=== PATIENT | female | born 1965 | race African-American/Black ===

== ENCOUNTER 2019-02-22 14:16 | Emergency (ER) | payer OTHER ==
[2019-02-22 14:26] VITALS: BP 129/69; PULSE 86; TEMP 98; BMI 31.2
--- NOTE | 2019-02-22 14:26 | PDOC ---
Rapid Medical Evaluation Chief Complaint: Pain, Acute Time Seen by Provider: 02/22/19 14:24 Medical Evaluation: Allergies Allergy/AdvReac Type Severity Reaction Status Date / Time No Known Allergies Allergy Verified 05/05/15 21:04 02/22/19 14:24 I have performed a brief in-person evaluation of this patient. The patient presents with a chief complaint of:pain to right foot/ heel x 4 weeks/ worsen today - Atraumatic Pertinent physical exam findings: walks with limp I have ordered the following: nothing The patient will proceed to the ED for further evaluation. Discharge Disposition - Diagnosis Foot pain, right - Referrals - Patient Instructions - Post Discharge Activity
--- NOTE | 2019-02-22 15:04 | PDOC ---
History of Present Illness - General Chief Complaint: Pain, Acute Stated Complaint: RT KNEE PAIN Time Seen by Provider: 02/22/19 14:24 History Source: Patient - History of Present Illness Initial Comments: 02/22/19 15:11 53 year old female c/o right knee pain patient reports that she twisted her knee while screwing a light bulb . denies fall trauma to the knee. pain is worse with movement. Past History - Past Medical History Allergies/Adverse Reactions: Allergies Allergy/AdvReac Type Severity Reaction Status Date / Time No Known Allergies Allergy Verified 02/22/19 14:26 Home Medications: Ambulatory Orders Omeprazole 20 mg PO DAILY 05/05/15 Ranitidine HCl [Zantac] 150 mg PO DAILY 05/05/15 Simvastatin 40 mg PO DAILY 05/05/15 Naproxen 500 mg PO BID PRN #14 tablet 02/22/19 COPD: No HTN: Yes Hypercholesterolemia: Yes - Immunization History Immunization Up to Date: Yes - Psycho Social/Smoking Cessation Hx Smoking History: Never smoked Have you smoked in the past 12 months: No Hx Alcohol Use: No Drug/Substance Use Hx: No Review of Systems - Review of Systems Able to Perform ROS?: Yes Is the patient limited [place] proficient: No Musculoskeletal: Yes: Other (knee pain) *Physical Exam - Vital Signs Last Vital Signs Temp Pulse Resp BP Pulse Ox 98 F 86 18 129/69 98 02/22/19 14:23 02/22/19 14:23 02/22/19 14:23 02/22/19 14:23 02/22/19 14:23 - Physical Exam General Appearance: Yes: Appropriately Dressed Respiratory/Chest: positive: Lungs Clear, Normal Breath Sounds Extremity: positive: Other (able to leg raise and kick out. pain is worse with movement. ) Integumentary: positive: Normal Color, Dry, Warm Neurologic: positive: Fully Oriented, Alert, Normal Mood/Affect ED Progress Note - Progress Note Progress Note: 02/22/19 16:09 A: right knee pain P: knee immobilizer RICE ortho follow up Discharge - Discharge Information Problems reviewed: Yes Clinical Impression/Diagnosis: Right anterior knee pain Disposition: HOME - Additional Discharge Information Prescriptions: Naproxen 500 mg PO BID PRN #14 tablet PRN Reason: Pain - Follow up/Referral Referrals: Lan Jones [Primary Care Provider] - Yogi Kessler MD [Staff Physician] - - Patient Discharge Instructions Patient Printed Discharge Instructions: DI for Knee Pain Additional Instructions: use a knee immobilizer Apply ice to the area for the first 24 hours. Then alternate with ice and heat after. Take every 6 hours as needed for pain. Follow-up with an orthopedic doctor if symptoms persist. A referral was given to you today. Return to the emergency room for any worsening symptoms. - Post Discharge Activity Work/Back to School Note: Back to Work
[2019-02-22] MEDS ORDERED: IBUPROFEN 600 MG TABLET (FP) PO ONE ×2 (15:07→15:33)
== END 2019-02-22 16:28 | disposition home or self-care (01) ==
LOC: JERFT 14:16
PROC: 2W3QXYZ Immobilization of Right Lower Leg using Other Device (ICD-10-PCS; principal; 2019-02-22)
DX: M25.561 Pain in right knee (principal); X50.1XXA Overexertion from prolonged static or awkward postures, initial encounter; Y93.E9 Activity, other interior property and clothing maintenance; Y92.018 Other place in single-family (private) house as the place of occurrence of the external cause
CPT/HCPCS: 73562-TC-RT-FY; 99281-25